=== PATIENT | female | born 1985 | race Caucasian/White ===

== ENCOUNTER 2024-04-30 17:34 | Emergency (ER) | payer SELFPAY ==
[~2024-04-30] VITALS: Ht 157.5 cm; Wt 58.9 kg
[2024-04-30 17:55] VITALS: O2SAT 96
[2024-04-30 18:14] LABS: CLARITY URINE CLOUDY (CLEAR); COLOR URINE YELLOW (YELLOW); GLUCOSE URINE NEGATIVE (NEGATIVE); KETONES URINE NEGATIVE (NEGATIVE); LEUKOCYTE ESTERASE URINE 1+ (NEGATIVE); NITRITE URINE NEGATIVE (NEGATIVE); OCCULT BLOOD URINE 2+ (NEGATIVE); PROTEIN URINE TRACE (NEGATIVE); SPECIFIC GRAVITY URINE 1.024 (1.005-1.030)
[2024-04-30 18:59] LABS: BACTERIA URINE 2+; RBC URINE 15-25 /hpf (0-2); SQUAMOUS EPITHELIAL CELL URINE 1+ /lpf (RARE/1+)
[2024-04-30] MEDS: SODIUM CHLORIDE 0.9% 1,000 ML IV ONE (21:34)
[2024-04-30 21:36] LABS: BASOPHILS % 0.7 % (0.0-2.0); EOSINOPHILS % 2.4 % (0.0-5.0); HEMATOCRIT. 41.9 % (36.0-48.0); MEAN CORPUSCULAR HEMOGLOBIN 29.4 pg (28.0-32.0); MEAN CORPUSCULAR HGB CONC 33.3 g/dL (31.0-37.0); MEAN CORPUSCULAR VOLUME 88.2 fL (81.0-99.0); MONOCYTES % 4.6 % (2.0-8.0); NEUTROPHILS % 64.3 % (40.0-76.0); PLATELET 340 x1000/uL (130-400); RED BLOOD CELL COUNT 4.75 mill/uL (4.2-5.4); RED CELL DISTRIBUTION WIDTH 13.4 % (11.6-14.6); WHITE BLOOD COUNT 11.7 x1000/uL (4.5-11.0)
[2024-04-30] MEDS: CEFTRIAXONE 1GM/50ML 50 ML IV ONE (21:39)
[2024-04-30] MEDS: KETOROLAC 30MG/ML VIAL IV STA (21:39)
[2024-04-30 21:41] LABS: CARBON DIOXIDE 26 mEq/L (21-32); CHLORIDE 106 mEq/L (98-107); POTASSIUM 3.9 mEq/L (3.5-5.1); SODIUM 139 mEq/L (136-145)
[2024-04-30 21:42] LABS: CALCIUM 9.6 mg/dL (8.7-10.4)
[2024-04-30 21:46] LABS: CREATININE 0.7 mg/dL (0.6-1.0)
[2024-04-30 21:47] LABS: GLUCOSE 94 mg/dL (70-105); UREA NITROGEN BLOOD 13 mg/dL (9-23)
[2024-04-30 21:49] LABS: ALANINE AMINOTRANSFERASE 27 IU/L (10-49); ALBUMIN 4.9 g/dL (3.2-4.8); ASPARTATE AMINOTRANSFERASE 25 IU/L (<34); BILIRUBIN TOTAL 0.4 mg/dL (0.1-1.0)
[2024-04-30 21:50] LABS: HCG SCREEN NEGATIVE
[2024-05-01] MEDS ORDERED: CEPH500C2 MT (01:02)
[2024-05-01] MEDS ORDERED: IBUP-2028 MT (01:02)
[2024-05-01 01:59] VITALS: BP 134/63; PULSE 60; RESP 12; TEMP 36.61404; O2SAT 100
== END 2024-05-01 02:03 | disposition home or self-care (01) ==
LOC: ER 17:34
DX: N39.0 Urinary tract infection, site not specified (principal)
CPT/HCPCS: 99285; 74176; 96365; 96366; 80053; 81003; 84703; 83690; 85025; 36415; J0696; J1885; J7030